=== PATIENT | female | born 1955 | race Two or more races ===

== ENCOUNTER 2019-01-16 23:53 | Emergency (ER) | payer MEDICAID ==
[~2019-01-16] VITALS: Ht 165.1 cm; Wt 74.8 kg
--- NOTE | 2019-01-17 00:52 | NUR ---
DR. FLEMING AT BEDSIDE FOR MSE.
[2019-01-17] MEDS ORDERED: IV NORMAL SALINE 500 ML BAG IV ONE (01:00)
[2019-01-17] MEDS ORDERED: ONDANSETRON 4 MG/2 ML VIAL IV ONE (01:00)
[2019-01-17] MEDS ORDERED: ONDANSETRON 4 MG/2 ML VIAL ONE (01:14)
[2019-01-17 01:15] LABS: BASOPHILS # (AUTO) 0.1 K/uL (0.0-8.0); BASOPHILS % (AUTO) 0.5 % (0.0-2.0); EOSINOPHILS # (AUTO) 0.3 K/uL (0.0-0.7); EOSINOPHILS % (AUTO) 2.1 % (0.0-7.0); HEMATOCRIT 40.9 % (31.2-41.9); HEMOGLOBIN 13.7 g/dL (10.9-14.3); LYMPHOCYTES # (AUTO) 2.7 K/uL (20.0-40.0); LYMPHOCYTES % (AUTO) 21.3 % (20.5-51.5); MEAN CORPUSCULAR HEMOGLOBIN 29.7 uug (24.7-32.8); MEAN CORPUSCULAR HGB CONC 33 g/dL (32.3-35.6); MEAN CORPUSCULAR VOLUME 88.9 fL (75.5-95.3); MONOCYTES # (AUTO) 0.8 K/uL (2.0-10.0); MONOCYTES % (AUTO) 6.3 % (0.0-11.0); NEUTROPHILS % (AUTO) 69.8 % (38.5-71.5); PLATELET COUNT (AUTO) 215 K/uL (179-408); WHITE BLOOD COUNT (AUTO) 12.9 K/uL (3.8-11.8)
[2019-01-17] MEDS ORDERED: PHEN-705 PO (01:22)
[2019-01-17] MEDS ORDERED: DOCU100C36 PO (01:22)
[2019-01-17] MEDS ORDERED: OXYB15TA18 PO (01:22)
[2019-01-17] MEDS ORDERED: NAPR-1009 PO (01:22)
[2019-01-17] MEDS ORDERED: TRAZ-182 PO (01:22)
[2019-01-17] MEDS ORDERED: ASPI-605 PO (01:22)
[2019-01-17 01:26] LABS: BILIRUBIN,DIRECT 0.1 mg/dL (0.0-0.2); BILIRUBIN,TOTAL 0.3 mg/dL (0.2-1.0); CREATININE 0.7 mg/dL (0.6-1.3); POTASSIUM 3.4 mmol/L (3.5-5.1); TOTAL PROTEIN, SERUM 6.8 g/dL (6.4-8.2)
--- NOTE | 2019-01-17 02:54 | NUR ---
patient with c/o back pain 5/10, aching. Dr. salter notified, verbal order for 600mg ibuporfen po x1.
[2019-01-17] MEDS ORDERED: IBUPROFEN 600 MG TABLET ONE (02:57)
[2019-01-17] MEDS ORDERED: IBUPROFEN 600 MG TABLET PO ONE (03:00)
[2019-01-17 04:12] LABS: *BILIRUBIN,URIN NEGATIVE (NEGATIVE); *BLOOD, URINE 2+ (NEGATIVE); *CLARITY,URINE CLEAR (CLEAR); *COLOR,URINE YELLOW (YELLOW); *KETONES,URINE NEGATIVE (NEGATIVE); *UROBILINOGEN,URINE 0.2 E.U./dl (NORMAL); LEUKOCYTE ESTERASE ,URINE 1+ (NEGATIVE); NITRITE, URINE NEGATIVE (NEGATIVE); PH,URINE 6.5 (5.0-8.0); UGLUCOSE NEGATIVE (NEGATIVE)
[2019-01-17 04:24] LABS: BACTERIA,URINE FEW /HPF (NONE SEEN); SQUAMOUS EPITHELIAL CELL,UR MODERATE /HPF (NONE SEEN)
--- NOTE | 2019-01-17 04:33 | NUR ---
Spoke with Julio from [facility] trip # [id number]. ETA 0600. Patient notified.
--- NOTE | 2019-01-17 05:46 | NUR ---
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 called [facility] spoke with tiffani to let her know patient is on the way back.
[2019-01-17 05:58] VITALS: BP 135/70
== END 2019-01-17 05:59 | disposition home or self-care (01) ==
LOC: ER 01-17
DX: N20.1 Calculus of ureter (principal); R19.7 Diarrhea, unspecified; K21.9 Gastro-esophageal reflux disease without esophagitis; Z79.82 Long term (current) use of aspirin; Z79.899 Other long term (current) drug therapy
CPT/HCPCS: 36415; 74176; 80048; 80076; 81000; 81001; 83690; 85025; 87077; 87086; 87186; 96361; 96374; 99284; J2405; A4663; J7030

== ENCOUNTER 2022-07-25 20:55 | Emergency (ER) | payer OTHER ==
[~2022-07-25] VITALS: Ht 152.4 cm; Wt 86.6 kg
[~2022-07-25 20:55] MED LIST: ASPI-605 PO; DOCU100C36 PO; NAPR-1009 PO; OXYB15TA19 PO; PHEN-705 PO; TRAZ-182 PO
[2022-07-25] MEDS ORDERED: ACET325T53 PO (21:35)
[2022-07-25] MEDS ORDERED: METF-495 PO (21:35)
[2022-07-25] MEDS ORDERED: ONDA4TAB11 PO (21:35)
[2022-07-25] MEDS ORDERED: TAMS-3 PO (21:35)
[2022-07-25] MEDS ORDERED: LATA7.5D EACHEYE (21:35)
[2022-07-25] MEDS ORDERED: HYDR-3972 PO (21:35)
[2022-07-25] MEDS ORDERED: METO25TA6 PO (21:35)
[2022-07-25 21:51] LABS: *BILIRUBIN,URIN NEGATIVE (NEGATIVE); *BLOOD, URINE 3+ (NEGATIVE); *CLARITY,URINE CLEAR (CLEAR); *COLOR,URINE YELLOW (YELLOW); *KETONES,URINE NEGATIVE (NEGATIVE); *UROBILINOGEN,URINE 0.2 E.U./dl (NORMAL); LEUKOCYTE ESTERASE ,URINE 2+ (NEGATIVE); NITRITE, URINE NEGATIVE (NEGATIVE); PH,URINE 6.5 (5.0-8.0); UGLUCOSE NEGATIVE (NEGATIVE)
[2022-07-25] MEDS ORDERED: ONDANSETRON 4 MG/2 ML VIAL IV ONE (22:00)
[2022-07-25] MEDS ORDERED: OXYCODONE/APAP 5-325 MG TABLET PO ONE (22:00)
[2022-07-25] MEDS ORDERED: ONDANSETRON 4 MG/2 ML VIAL ONE (22:28)
[2022-07-25 22:29] LABS: HEMATOCRIT 39.3 % (31.2-41.9); MEAN CORPUSCULAR HEMOGLOBIN 29.4 uug (24.7-32.8); MEAN CORPUSCULAR VOLUME 90.2 fL (75.5-95.3); PLATELET COUNT (AUTO) 254 K/uL (179-408)
[2022-07-25] MEDS ORDERED: OXYCODONE/APAP 5-325 MG TABLET ONE (22:29)
[2022-07-25 22:43] LABS: CREATININE 0.9 mg/dL (0.6-1.3)
[2022-07-25 22:50] LABS: BILIRUBIN,DIRECT 0.1 mg/dL (0.0-0.2); BILIRUBIN,TOTAL 0.4 mg/dL (0.2-1.0); TOTAL PROTEIN, SERUM 7.3 g/dL (6.4-8.2)
--- NOTE | 2022-07-26 00:28 | NUR ---
Dr. Connolly speaking with Dr. Pierce for urology consult.
[2022-07-26] MEDS ORDERED: CEFTRIAXONE 1 G in IV DEXTROSE 5% 50 ML IV ONE (00:30)
--- NOTE | 2022-07-26 00:48 | NUR ---
Called [facility] and spoke to Yue about patient transfer.
[2022-07-26] MEDS ORDERED: IV NS 1000 ML 1,000 ML IV ONE (01:00)
[2022-07-26] MEDS ORDERED: KETOROLAC TROMETHAMINE 15 MG INJ IVP ONE ×2 (01:00→09:30)
[2022-07-26] MEDS ORDERED: CEFTRIAXONE /D5W 50ML IVPB **ER PYXIS IV ONE (01:08)
[2022-07-26] MEDS ORDERED: KETOROLAC TROMETHAMINE 15 MG INJ ONE ×2 (01:08→09:28)
--- NOTE | 2022-07-26 01:15 | NUR ---
Called [facility], currently at capacity.
--- NOTE | 2022-07-26 01:24 | NUR ---
Called [facility], spoke with Zandra, faxed clinicals to .
[2022-07-26 02:16] LABS: BACTERIA,URINE FEW /HPF (NONE SEEN); SQUAMOUS EPITHELIAL CELL,UR MANY /HPF (NONE SEEN)
--- NOTE | 2022-07-26 03:24 | NUR ---
[facility] center called, spoke to Zandra and stated that pt was no accepted by [facility].
--- NOTE | 2022-07-26 04:14 | NUR ---
Received call back from [facility] transfer center, at capacity.
--- NOTE | 2022-07-26 04:17 | NUR ---
Called [facility], no beds available.
--- NOTE | 2022-07-26 04:45 | NUR ---
Called [facility] [place], spoke with Carolee Cunha [facility] and Jessica Evans [facility] no beds, Pt can be on waiting list for [facility]. Requested to have face sheet and clinicals to be faxed to and that patient's health insurance IPA needs to call the [facility] @ .
--- NOTE | 2022-07-26 07:06 | NUR ---
Gave report to Bob VARGAS.
--- NOTE | 2022-07-26 07:50 | NUR ---
Per report from previous shift patient needs a higher level of care transfer for urology. Multiple facilities were called (see previous notes) with no success. ER admitting stated patients healthcare plan ([facility]) was called but there was no answer and a message was left.
--- NOTE | 2022-07-26 09:40 | NUR ---
Pt currently in stable condition. Safety measures in place. Will continue to monitor.
--- NOTE | 2022-07-26 10:30 | NUR ---
Spoke with Valorie ([phone]) at [facility] regarding higher level of care transfer, she is the case making machine operator television picture tube rebuilder for [facility] today. She stated she will review the case and call back.
--- NOTE | 2022-07-26 11:04 | NUR ---
Spoke with ER Admitting. Was informed Pt has [employer] healthcare plan. Called [employer]-no answer and message was left by ER admitting. Received telephone call from Licha from [facility] and stated they need to be directly contacted by [employer].
--- NOTE | 2022-07-26 12:40 | NUR ---
Called pt's nursing home facility ([facility] [phone]) and spoke with Angi who stated she will have the person in charge of pt's care call back.
--- NOTE | 2022-07-26 12:50 | NUR ---
Received call from Ghassan from [facility], he stated he will speak to his nurse in charge and call back.
--- NOTE | 2022-07-26 13:20 | NUR ---
Received telephone call from pt's daughter Annette, plan of care discussed.
--- NOTE | 2022-07-26 14:40 | NUR ---
Called pt's pmd Dr.Michelle Mckeon ([phone]), left message for call back.
--- NOTE | 2022-07-26 16:50 | NUR ---
Called [facility] ([phone]), spoke with Halie who stated they are at [facility] and have no beds at this time. Pt states her pmd is at [facility] and requested I try to call again. Also attempted to contact pt's pmd Dr.Michelle Mckeon per pt request, no call back was received.
--- NOTE | 2022-07-26 17:14 | NUR ---
Contacted [facility] if there are any hospitals in the critical access hospital that can accept Pt for higher level of care w/ urology services. Disc [employer] Grinding Machine Feeder #[phone] stated that there aren't as all hospitals are at full capacity.
--- NOTE | 2022-07-26 18:40 | NUR ---
ER admitting called [facility] again per request. Per Suzi, there was no answer and she left a message.
--- NOTE | 2022-07-26 19:05 | NUR ---
Dr. Chong spoke with Dr. Jorge Alarcon, online publisher for Dr. Mckeon, for possible transfer to [facility].
--- NOTE | 2022-07-26 19:13 | NUR ---
Called [facility], at capacity.
--- NOTE | 2022-07-26 19:37 | NUR ---
Was contacted by Livia (ALICIA) of [place]. Livia stated she will "try to get in contact with a urologist and possibly perform peer to peer contact."
--- NOTE | 2022-07-26 19:59 | NUR ---
Called [facility], , available bed at [facility], Dr. Chong spoke with ER MD, to wait 1 hour to see if [facility] will accept patient first.
--- NOTE | 2022-07-26 20:15 | NUR ---
Received call back from [facility], declined to accept patient.
--- NOTE | 2022-07-26 20:35 | NUR ---
Dr. Chong speaking with Dr. Melgar of [facility].
[2022-07-26] MEDS ORDERED: HYDROMORPHONE 1 MG/1 ML DISP.SYRIN ONE (20:40)
[2022-07-26] MEDS ORDERED: HYDROMORPHONE 1 MG/1 ML DISP.SYRIN IV ONE (20:45)
--- NOTE | 2022-07-26 21:06 | NUR ---
Gave report to Munir (RN), in ER of [facility].
--- NOTE | 2022-07-26 21:12 | NUR ---
Informed by [facility] that they will pickle water pump operator Pt 60-90 min. from now (approximetly 10:45).
--- NOTE | 2022-07-26 21:15 | NUR ---
Called Munir FORD) from [facility] that Pt's ETA is 0000.
--- NOTE | 2022-07-26 22:14 | NUR ---
[facility] arrived @ [id number]. Gave report to Thierno (EMT).
--- NOTE | 2022-07-26 22:30 | NUR ---
Patient Tranfers to outside Facility Physician: Dr. Saab Location:[facility] Patient transferred to by [facility]. Patient in stable condition at time of transfer. Patient left facility in stable condition. All belongings brought with patient.
== END 2022-07-26 22:34 | disposition short-term general hospital (02) ==
LOC: ER 20:55
DX: N20.1 Calculus of ureter (principal); N13.30 Unspecified hydronephrosis; N39.0 Urinary tract infection, site not specified; E11.65 Type 2 diabetes mellitus with hyperglycemia; K21.9 Gastro-esophageal reflux disease without esophagitis; Z79.899 Other long term (current) drug therapy; Z79.82 Long term (current) use of aspirin; Z20.822 Contact with and (suspected) exposure to COVID-19
CPT/HCPCS: 99285; 74176; 96375 ×2; 80076; 80048; 81001; 83690; 85025; 36415; 96374; 87426; 96376; J2405; J0696; J1885 ×2; J1170; J7040; A4663